=== PATIENT | female | born 1995 | race African-American/Black ===

== ENCOUNTER 2016-08-30 18:36 | Emergency (ER) | payer SELFPAY ==
[~2016-08-30] VITALS: Ht 172.7 cm; Wt 59.5 kg
[~2016-08-30 18:36] MED LIST: NAPROSYN500 MG PO; VENTOLIN HFA18 GM IH
[2016-08-30 19:15] LABS: HEMATOCRIT 35.9 % (36.0-46.0); MCH 33.3 PG (29.0-34.0); MCHC 34.8 G/DL (30.0-36.0); MCV 95.7 FL (83-99); MEAN PLAT.VOLUME 9.6 uM^3 (9.5-12.4); PLATELET COUNT 247 K/uL (156-360); RBC DIS.WIDTH-CV 11.2 % (11.8-14.6); RBC DIS.WIDTH-SD 39.6 % (39-53); RED BLOOD COUNT 3.75 M/uL (3.80-5.20); WHITE BLOOD COUNT 6.6 K/uL (4.1-10.2)
[2016-08-30 20:17] LABS: CHLORIDE 107 mEq/L (99-109); POTASSIUM 3.3 mEq/L (3.7-5.4); SODIUM 137 mEq/L (136-147)
[2016-08-30 20:19] LABS: GLUCOSE 80 mg/dL (70-99)
[2016-08-30 20:20] LABS: QUANTITATIVE HCG < 4.0 MIU/ML
[2016-08-30 20:21] LABS: ANION GAP 10 MEQ/L (2-14); TOTAL BILIRUBIN 0.5 mg/dL (0.0-1.0)
[2016-08-30 20:23] LABS: ALKALINE PHOSPHATASE 68 IU/L (3-129); GFR ESTIMATE (CALCULATED) > 59 mL/min/
[2016-08-30 20:24] LABS: UREA NITROGEN (BUN) 7 mg/dL (9-23)
[2016-08-30 21:38] LABS: ADD MIUA? YES; BILIRUBIN NEGATIVE; BLOOD LARGE; COLOR STRAW ((YELLOW)); GLUCOSE (STRIP) NEGATIVE; KETONES 5; LEUKOCYTES NEGATIVE; NITRITE NEGATIVE; PROTEIN (STRIP) NEGATIVE; SPECIFIC GRAVITY 1.006 (1.000-1.030); UROBILINOGEN 0.2 MG/DL (0.2-1.0)
[2016-08-30] MEDS ORDERED: MENSTRUAL RELI1 EACH PO (21:40)
[2016-08-30 21:42] LABS: BACTERIA RARE /HPF; EPITHELIAL CELLS RARE /HPF; MUCUS TRACE /LPF; UCUL ADDED? NO; WHITE BLOOD CELLS 0-5 /HPF (0-5)
[2016-08-30] MEDS ORDERED: ZOFRAN ODT4 MG PO (22:28)
[2016-08-30 23:00] VITALS: BP 129/83
== END 2016-08-30 23:01 | disposition home or self-care (01) ==
LOC: EME 18:36
DX: R55 Syncope and collapse (principal); R11.2 Nausea with vomiting, unspecified
CPT/HCPCS: 71020; 80053; 81003; 84702; 85027; 93005; 99281; 99284

== ENCOUNTER 2017-09-03 04:12 | Emergency (ER) | payer OTHER ==
[~2017-09-03] VITALS: Ht 172.7 cm; Wt 69.3 kg
[~2017-09-03 04:12] MED LIST changes: +MENSTRUAL RELI1 EACH PO; +ZOFRAN ODT4 MG PO
[2017-09-03 04:18] VITALS: BP 126/85
[2017-09-03 05:47] LABS: HEMATOCRIT 35.4 % (36.0-46.0); HEMOGLOBIN 12.3 G/DL (11.9-15.5); MCH 33.8 PG (29.0-34.0); MCHC 34.7 G/DL (30.0-36.0); MCV 97.3 FL (83-99); PLATELET COUNT 300 K/uL (156-360); RBC DIS.WIDTH-CV 11.8 % (11.8-14.6); RBC DIS.WIDTH-SD 42.3 % (39-53); RED BLOOD COUNT 3.64 M/uL (3.80-5.20); WHITE BLOOD COUNT 6.5 K/uL (4.1-10.2)
[2017-09-03 05:58] LABS: CHLORIDE 103 mEq/L (99-109); POTASSIUM 4.1 mEq/L (3.7-5.4); SODIUM 135 mEq/L (136-147)
[2017-09-03 06:00] LABS: GLUCOSE 98 mg/dL (70-99); TOTAL PROTEIN 7.3 g/dL (6.4-8.3)
[2017-09-03 06:02] LABS: TOTAL BILIRUBIN 0.2 mg/dL (0.0-1.0)
[2017-09-03 06:04] LABS: ALKALINE PHOSPHATASE 77 IU/L (3-129); GFR ESTIMATE (CALCULATED) > 59 mL/min/
[2017-09-03 06:05] LABS: UREA NITROGEN (BUN) 11 mg/dL (9-23)
[2017-09-03 06:06] LABS: AST (GOT) 14 IU/L (2-34)
[2017-09-03 06:07] LABS: ALT (GPT) 9 IU/L (3-49)
[2017-09-03 06:12] LABS: QUANTITATIVE HCG < 4.0 MIU/ML
== END 2017-09-03 05:35 | disposition left against medical advice (07) ==
LOC: EME 04:12
PROVIDERS: Physician Assistant
DX: R10.2 Pelvic and perineal pain (principal); Z53.21 Procedure and treatment not carried out due to patient leaving prior to being seen by health care provider
CPT/HCPCS: 80053; 81003; 84702; 85027

== ENCOUNTER 2017-10-10 22:05 | Emergency (ER) | payer OTHER ==
[~2017-10-10] VITALS: Ht 172.7 cm; Wt 69.7 kg
[2017-10-10 22:31] LABS: APPEARANCE SL.HAZY ((CLEAR)); BILIRUBIN NEGATIVE; BLOOD LARGE; COLOR YELLOW ((YELLOW)); GLUCOSE (STRIP) NEGATIVE; KETONES 5; LEUKOCYTES SMALL; NITRITE NEGATIVE; PROTEIN (STRIP) 30; SPECIFIC GRAVITY 1.028 (1.000-1.030)
[2017-10-10 22:47] LABS: BACTERIA NONE SEEN /HPF; EPITHELIAL CELLS 1+ /HPF; MUCUS TRACE /LPF; UCUL ADDED? YES
[2017-10-10 23:37] VITALS: BP 118/81
== END 2017-10-10 23:40 | disposition home or self-care (01) ==
LOC: EME 22:05
DX: N89.8 Other specified noninflammatory disorders of vagina (principal); T83.9XXA Unspecified complication of genitourinary prosthetic device, implant and graft, initial encounter; F41.9 Anxiety disorder, unspecified; F32.9 Major depressive disorder, single episode, unspecified; F17.200 Nicotine dependence, unspecified, uncomplicated
CPT/HCPCS: 81003; 87086; 99281; 99283